=== PATIENT | male | born 1970 | race Caucasian/White ===

== ENCOUNTER 2018-10-03 01:21 | Emergency (ER) | payer BC ==
--- NOTE | 2018-10-03 01:47 | Emergency Department Record ---
History of Present Illness - General Chief Complaint: Headache Migraine Stated Complaint: CLUSTER HEADACHE, MEDS ARE NOT WORKING Time Seen by Provider: 10/03/18 01:24 Source: Patient Mode of Arrival: Ambulatory Limitations: No limitations - History of Present Illness Initial Comments: The patient is here due to a 3 day hx of a "cluster GOTTI" which did get worse tonight. The pain is sharp and stabbing in the L ocular nerve area. He has had a long hx of similar issues and does take Imitrex for it. The patient had a full workup for the pain in 2004 when they started and did see a Neurologist. He denies any recent fever, chills, trauma, vomiting, or neck pain but he does have significant photophobia. MD Complaint: Headache Onset/Timin -: Days(s) Onset Description: Sudden, Awoke with symptoms Location: Left, Retro-orbital Severity: Moderate Severity scale (1-10): 8 Quality: Sharp Consistency: Constant Improves With: Nothing Associated Symptoms: Photophobia, Sensitivity to sound Treatments Prior to Arrival: Migraine medication - Symptoms of Stroke Symptoms of stroke: Dizziness Baseline State: Baseline State - Related Data Home Medications Medication Instructions Recorded Confirmed Last Taken Sumatriptan Succinate [Imitrex] 6 mg SQ ASDIR 10/03/18 10/03/18 10/03/18 Verapamil HCl [Verapamil Sr] 120 mg PO DAILY 10/03/18 10/03/18 10/03/18 Allergies Allergy/AdvReac Type Severity Reaction Status Date / Time No Known Drug Allergies Allergy Verified 10/03/18 01:38 Travel Screening - Travel/Exposure Within Last 30 Days Have you traveled within the last 30 days?: Yes Location Detail:: [place] - Travel/Exposure Within Last Year Have you traveled outside the [place] in the last year?: No - Additonal Travel Details Have you been exposed to anyone with a communicable illness?: No - Travel Symptoms Symptom Screening: None Review of Systems Constitutional: Denies: Chills, Fever Eyes: Denies: Eye discharge ENT: Denies: Congestion Respiratory: Denies: Cough, Dyspnea Cardiovascular: Denies: Arrhythmia, Chest pain Past Medical History - SOCIAL HISTORY Smoking Status: Never smoker Alcohol Use: Occasional Drug Use: None - RESPIRATORY Hx Respiratory Disorders: No - CARDIOVASCULAR Hx Cardio Disorders: No - NEURO Hx Neuro Disorders: Yes Hx Headaches: Yes (2004) - GI Hx GI Disorders: Yes - Hx Genitourinary Disorders: No - ENDOCRINE Hx Endocrine Disorders: No - MUSCULOSKELETAL Hx Musculoskeletal Disorders: No - PSYCH Hx Psych Problems: No - HEMATOLOGY/ONCOLOGY Hx Hematology/Oncology Disorders: No Family Medical History Any Significant Family History?: No Physical Exam - General General Appearance: Alert, Oriented x3, Cooperative, No acute distress - Head Head exam: Atraumatic, Normocephalic, Normal inspection - Eye Eye exam: Normal appearance, PERRL, EOMI - ENT Throat exam: Normal inspection. negative: Tonsillar erythema, Tonsillar exudate - Neck Neck exam: Normal inspection, Full ROM. negative: Tenderness - Respiratory Respiratory exam: Normal lung sounds bilaterally. negative: Respiratory distress - Cardiovascular Cardiovascular Exam: Regular rate, Normal rhythm, Normal heart sounds - GI/Abdominal GI/Abdominal exam: Soft, Normal bowel sounds. negative: Tenderness - Extremities Extremities exam: Normal inspection, Full ROM, Normal capillary refill. negative: Tenderness - Back Back exam: Reports: Normal inspection - Neurological Neurological exam: Alert, Normal gait, Oriented X3, Other (Neg Drift and Rhomberg exams.). negative: Abnormal gait, Altered, Motor sensory deficit - Psychiatric Psychiatric exam: negative: Anxious, Depressed Course Vital Signs 10/03/18 01:32 Temperature 97.8 F Pulse Rate 73 Respiratory 22 Rate Blood Pressure 152/109 Pulse Ox 98 - Reevaluation(s) Reevaluation #1: The patient is doing better at this time and is resting comfortably. 10/03/18 02:10 Reevaluation #2: The patient is doing a lot better at this time. His pain is almost completely gone and he feels very comfortable leaving at this time. He is instructed to see his PCP for recheck if needed and return to the ER for any worsening symptoms. 10/03/18 03:05 Disposition Disposition: Discharge Clinical Impression: Cluster headache syndrome Qualifiers: Headache chronicity pattern: unspecified pattern Intractability: not intractable Qualified Code(s): G44.009 - Cluster headache syndrome, unspecified, not intractable Disposition: Home, Self-Care Condition: (2) Stable Instructions: Acute Headache (ED) Additional Instructions: Please continue your regular medicines and see your doctor this week if not b susanne. Return to the ER for any worsening symptoms. Forms: Patient Portal Access Time of Disposition: 03:03 Quality - Quality Measures Quality Measures: Headache (All Ages) - Headache: Neuroimaging Quality Measure: Measure #419: Overuse of Neuroimaging ICD10 Codes Entered: Yes View Detail: Yes Neurological Exam: Patient had a normal neurological exam. [G9535] Headache: Use of Neuroimaging: < CTA, CT, MRA or MRI was NOT ordered > [G9534] - Blood Pressure Screening View Details: Yes Does Patient Have Any of the Following: No Blood Pressure Classification: Hypertensive Reading Systolic Measurement: 152 Diastolic Measurement: 109 Screening for High Blood Pressure: < First Hypertensive BP, F/U Documented > [G8950] First Hypertensive Follow-up Interventions: Referral to alternative/primary care provider.
[2018-10-03] MEDS ORDERED: KETOROLAC 30 MG/ML VIAL IM ONE (02:29)
== END 2018-10-03 03:08 | disposition home or self-care (01) ==
LOC: ER 01:21
DX: G44.009 Cluster headache syndrome, unspecified, not intractable (principal); H53.149 Visual discomfort, unspecified
CPT/HCPCS: 96372; 99283; J1885